=== PATIENT | male | born 1965 | race Caucasian/White ===

== ENCOUNTER 2017-04-17 16:48 | Emergency (ER) | payer BC ==
--- NOTE | 2017-04-17 17:04 | UC ---
HPI Febrile Illness - HPI Summary HPI Summary: 51 year old male presents with complains of sinus congestion and body aches. - History of Current Complaint Time Seen by Provider: 04/17/17 17:03 Hx Obtained From: Patient Onset/Duration: Started Minutes Ago Timing: Constant Initial Severity: Moderate Current Severity: Moderate Alleviating Factors: Nothing Associated Signs and Symptoms: Chills, Myalgia - Allergy/Home Medications Allergies/Adverse Reactions: Allergies Allergy/AdvReac Type Severity Reaction Status Date / Time No Known Allergies Allergy Verified 04/17/17 17:05 Home Medications: Home Medications BuPROPion XL* [Bupropion XL*] 300 mg PO DAILY 04/17/17 [History Confirmed ] PMH/Surg Hx/FS Hx/Imm Hx Previously Healthy: Yes - Surgical History Surgical History: None - Family History Known Family History: Positive: None - Social History Alcohol Use: None Review of Systems Constitutional: Negative Skin: Negative Eyes: Negative ENT: Sore Throat, Nasal Discharge, Sinus Congestion, Sinus Pain/Tenderness Respiratory: Cough Cardiovascular: Negative Gastrointestinal: Negative Genitourinary: Negative Motor: Negative Neurovascular: Negative Musculoskeletal: Myalgia Neurological: Negative Psychological: Negative All Other Systems Reviewed And Are Negative: Yes Physical Exam Triage Information Reviewed: Yes Vital Signs Reviewed: Yes Eye Exam: Normal ENT: Positive: Pharyngeal erythema, Nasal congestion, Nasal drainage, Sinus tenderness Dental Exam: Normal Neck exam: Normal Neck: Positive: 1 Respiratory Exam: Normal Cardiovascular Exam: Normal Abdominal Exam: Normal Musculoskeletal Exam: Normal Neurological Exam: Normal Psychological Exam: Normal Skin Exam: Normal Course/Dx - Diagnoses Clinic Provider Diagnoses: sinusitis Discharge - Discharge Plan Condition: Stable Disposition: HOME Prescriptions: Amoxicillin/Clavulanate TAB* [Augmentin TAB 875*] 875 mg PO BID #20 tab Guaifenesin-Codeine [Cheratussin AC] 1 teasp PO BEDTIME PRN #120 ml MDD 5 ml PRN Reason: Cough LoraTADine TAB(NF) [Claritin 10 MG TAB(NF)] 10 mg PO DAILY #30 tab Patient Education Materials: Sinusitis (ED) Referrals: No Primary Care Phys,NOPCP [Primary Care Provider] -
== END 2017-04-17 17:39 | disposition home or self-care (01) ==
LOC: UCCORT 16:48
DX: J32.9 Chronic sinusitis, unspecified (principal)
CPT/HCPCS: 87502; 99202; G0463

== ENCOUNTER 2017-07-22 21:33 | Emergency (ER) | payer SELFPAY ==
[2017-07-22] MEDS ORDERED: Famotidine TAB* 20 MG PO ONE (21:47)
[2017-07-22] MEDS ORDERED: predniSONE TAB* 20 MG PO ONE (21:48)
--- NOTE | 2017-07-22 22:00 | UC ---
Skin Complaint HPI - HPI Summary HPI Summary: PT C/O HIVES. HE AWOKE WITH HIVES THIS AM. HE TOOK A BENADRYL THIS AFTERNOON WHICH HELPED. TONIGHT THEY ARE WORSENING. NO FEVER, SOB, COUGH, N/V/D. NO NEW EXPOSURES OR CURRENT/RECENT ILLNESS. TX 50MG BENADRYL CREDENTIALING COORDINATOR. - History of Current Complaint Hx Obtained From: Patient Onset/Duration: Gradual Onset Pain Intensity: 0 Location: Diffuse Character: Pruritus, Hives Aggravating Factor(s): Nothing Alleviating Factor(s): Antihistamines Associated Signs & Symptoms: Positive: Rash. Negative: Nausea, Vomiting, Fever , Cough, Wheezing, Chest Pain <Kaylie Stringer - Last Filed: 07/22/17 22:09> <Charlotte Hope - Last Filed: 07/23/17 10:30> - History of Current Complaint Chief Complaint: UCRash Time Seen by Provider: 07/22/17 21:34 Stated Complaint: HIVES - Allergy/Home Medications Allergies/Adverse Reactions: Allergies Allergy/AdvReac Type Severity Reaction Status Date / Time No Known Allergies Allergy Verified 07/22/17 21:40 Review of Systems Constitutional: Negative Skin: Rash Eyes: Negative ENT: Negative Respiratory: Negative Cardiovascular: Negative Gastrointestinal: Negative Genitourinary: Negative Motor: Negative Neurovascular: Negative Musculoskeletal: Negative Neurological: Negative Psychological: Negative Is Patient Immunocompromised?: No All Other Systems Reviewed And Are Negative: Yes <Kaylie Stringer - Last Filed: 07/22/17 22:09> PMH/Surg Hx/FS Hx/Imm Hx - Additional Past Medical History Additional PMH: Fountain palsy Psychological History: Depression - Surgical History Surgical History: None - Family History Known Family History: Positive: None - Social History Occupation: Employed Full-time Lives: With Family Alcohol Use: None Alcohol Amount: 1-2 beer a night Substance Use Type: None Smoking Status (MU): Light Every Day Tobacco Smoker Type: Cigars - Immunization History Most Recent Influenza Vaccination: 01/2017 Vaccination Up to Date: Yes <Kaylie Stringer - Last Filed: 07/22/17 22:09> Physical Exam Triage Information Reviewed: Yes Appearance: Well-Appearing Vital Signs: Initial Vital Signs Temp 98.4 F 07/22/17 21:35 Pulse 88 07/22/17 21:35 Resp 19 07/22/17 21:35 BP 138/83 07/22/17 21:35 Pulse Ox 100 07/22/17 21:35 Vital Signs Reviewed: Yes Eyes: Positive: Conjunctiva Clear ENT: Positive: Pharynx normal, TMs normal. Negative: Nasal congestion, Nasal drainage Neck: Positive: Supple, Nontender, No Lymphadenopathy Respiratory: Positive: Lungs clear, Normal breath sounds, No respiratory distress Cardiovascular: Positive: RRR, No Murmur Abdomen Description: Positive: Nontender, No Organomegaly, Soft. Negative: Distended Bowel Sounds: Positive: Present Musculoskeletal: Positive: ROM Intact Neurological: Positive: Alert Psychological: Positive: Age Appropriate Behavior Skin: Positive: rashes - raised wheels on head, trunk and extremities. not petechial, no peeling or blistering. <Kaylie Stringer - Last Filed: 07/22/17 22:09> Vital Signs: Initial Vital Signs Temp 98.4 F 07/22/17 21:35 Pulse 88 07/22/17 21:35 Resp 19 07/22/17 21:35 BP 138/83 07/22/17 21:35 Pulse Ox 100 07/22/17 21:35 <Charlotte Hope - Last Filed: 07/23/17 10:30> Course/Dx - Course Course Of Treatment: EXAM IS C/W HIVES. NO CONCERN FOR ANAPHYLAXIS OR HOANG AIDE SYNDROM. WILL CONCTINUE WITH STEROID AND BENADRYL PLUS CLOSE F/U. PT ADVISED GO TO ER FOR ANY WORSENING. - Diagnoses Provider Diagnoses: Urticaria <Kaylie Stringer - Last Filed: 07/22/17 22:09> Discharge - Sign-Out/Discharge Documenting (check all that apply): Discharge - Billing Disposition and Condition Condition: STABLE Disposition: HOME <Kaylie Stringer - Last Filed: 07/22/17 22:09> - Billing Disposition and Condition Condition: STABLE Disposition: HOME <Charlotte Hope - Last Filed: 07/23/17 10:30> - Discharge Plan Condition: Stable Disposition: HOME Prescriptions: predniSONE TAB* [Deltasone TAB*] 40 mg PO DAILY 4 Days #8 tab Patient Education Materials: Urticaria (ED) Referrals: Divina Gandara MD [Primary Care Provider] - 2 Days Additional Instructions: CONTINUE THE BENADRYL 50MG EVERY 6 HOURS UNTIL THE HIVES RESOLVE. AVOID HOT SHOWERS/BATHS. GO TO THE EMERGENCY ROOM IMMEDIATELY FOR ANY WORSENING. Attestation Statement User Type: Provider - I was available for consult. This patient was seen by the JOSUÉ. The patient was not presented to, seen by, or examined by me. -Jenny <Charlotte Hope - Last Filed: 07/23/17 10:30> Addendum entered and electronically signed by Kaylie Stringer PA 07/22/17 22:09 :
== END 2017-07-22 21:59 | disposition home or self-care (01) ==
LOC: UCCORT 21:33
DX: L50.9 Urticaria, unspecified (principal); F17.290 Nicotine dependence, other tobacco product, uncomplicated
CPT/HCPCS: 99212; A9270-GY; G0463; J7512